=== PATIENT | female | born 1985 | race Caucasian/White ===

== ENCOUNTER 2022-09-24 23:08 | Emergency (ER) | payer MEDICAID ==
[~2022-09-24] VITALS: Ht 157.5 cm; Wt 54.4 kg
[2022-09-24 23:26] VITALS: BP_SYST 140
[2022-09-24] MEDS ORDERED: MORPHINE 4 MG INJ. 4 MG/ML VIAL IVP ONE (23:45)
[2022-09-24] MEDS ORDERED: ONDANSETRON HCL 4 MG/2 ML VIAL IVP ONE (23:45)
[2022-09-24] MEDS ORDERED: NACL 0.9% 1,000 ML IV ONE (23:45)
[2022-09-25 02:08] LABS: BASOPHILS % (AUTO) 0.4 % (0.0-2.0); EOSINOPHILS # (AUTO) 0.1 K/uL (0.0-0.4); EOSINOPHILS % (AUTO) 0.9 % (0.0-4.0); HEMATOCRIT 38.5 % (36-48); HEMOGLOBIN 12.6 g/dL (12.0-16.0); LYMPHOCYTES # (AUTO) 0.9 K/uL (1.0-5.5); LYMPHOCYTES % (AUTO) 10.2 % (20.5-51.5); MEAN CORPUSCULAR HEMOGLOBIN 27 pg (27-31); MEAN CORPUSCULAR HGB CONC 33 % (32-36); MEAN CORPUSCULAR VOLUME 81 fL (79.0-98.0); MONOCYTES # (AUTO) 0.9 K/uL (0.0-1.0); MONOCYTES % (AUTO) 9.9 % (1.7-9.3); NEUTROPHILS # (AUTO) 6.9 K/uL (1.8-7.7); NEUTROPHILS % (AUTO) 78.6 % (40.0-70.0); PLATELET COUNT (AUTO) 371 K/uL (130-430); RED BLOOD CELL COUNT(AUTO) 4.78 MIL/uL (4.2-6.2); RED CELL DISTRIBUTION WIDTH 15.1 % (9.0-15.0); WHITE BLOOD COUNT (AUTO) 8.8 K/uL (4.8-10.8)
[2022-09-25 02:16] LABS: CALCIUM 8.3 mg/dL (8.4-11.0); CREATININE 0.53 mg/dL (0.55-1.30)
[2022-09-25 02:29] LABS: TOTAL BILIRUBIN 0.4 mg/dL (0.0-1.0)
[2022-09-25 05:10] VITALS: BP_SYST 114
== END 2022-09-25 07:05 | disposition home or self-care (01) ==
LOC: SED 23:08
DX: R10.84 Generalized abdominal pain (principal)
CPT/HCPCS: 99285; 80053; 84703; 83690; 85025; 87040; 36415; 83605; 74177; 96374; 96361; 96375; 76376; J2405; J2270; Q9967; J7030